=== PATIENT | female | born 1965 ===

== ENCOUNTER 2017-07-14 09:48 | Emergency (ER) | payer SELFPAY ==
[2017-07-14 10:02] VITALS: BP 145/90
--- NOTE | 2017-07-14 10:25 | UC ---
Throat Pain/Nasal Anthony HPI - History of Current Complaint Hx Obtained From: Patient ?: No Onset/Duration: Gradual Onset - over course of week, started with scratchy throat and stuffy nose Severity: Worse Since: - yesterday, now has pressure in face, nose won't stop dripping, PND, puffy eyes Pain Intensity: 8 Cough: Nonproductive Associated Signs & Symptoms: Positive: Fever <Elder Amaya - Last Filed: 07/14/17 10:29> <Brandi Walter - Last Filed: 07/14/17 12:59> - History of Current Complaint Chief Complaint: UCRespiratory Stated Complaint: SORE THROAT Time Seen by Provider: 07/14/17 10:18 - Allergies/Home Medications Allergies/Adverse Reactions: Allergies Allergy/AdvReac Type Severity Reaction Status Date / Time No Known Allergies Allergy Verified 07/14/17 10:02 Home Medications: Home Medications Doxylamine/Phenylep/Dm/Aspirin [[facility] Day-Night Tab Eff] 1 mis PO [History] PMH/Surg Hx/FS Hx/Imm Hx Previously Healthy: Yes - Surgical History Surgical History: Yes Surgery Procedure, Year, and Place: , lt shoulder - Family History Known Family History: Positive: None - Social History Occupation: Employed Full-time Lives: With Family Alcohol Use: Weekly Substance Use Type: None Smoking Status (MU): Never Smoked Tobacco <Elder Amaya - Last Filed: 07/14/17 10:29> Review of Systems Constitutional: Fever, Fatigue Skin: Negative ENT: Sore Throat, Nasal Discharge, Sinus Congestion, Sinus Pain/Tenderness Respiratory: Cough Cardiovascular: Negative Gastrointestinal: Negative Neurological: Negative Psychological: Negative Is Patient Immunocompromised?: No All Other Systems Reviewed And Are Negative: Yes <Elder Amaya - Last Filed: 07/14/17 10:29> Physical Exam Triage Information Reviewed: Yes Appearance: Well-Appearing, No Pain Distress, Well-Nourished Vital Signs: Initial Vital Signs Temp 99.8 F 07/14/17 09:57 Pulse 103 07/14/17 09:57 Resp 18 07/14/17 09:57 BP 145/90 07/14/17 09:57 Pulse Ox 98 07/14/17 09:57 Vital Signs Reviewed: Yes Eye Exam: Normal ENT: Positive: Pharyngeal erythema, Nasal congestion, Nasal drainage, TMs normal , Sinus tenderness Neck exam: Normal Neck: Positive: Supple, Nontender, No Lymphadenopathy Respiratory Exam: Normal Cardiovascular Exam: Normal Musculoskeletal Exam: Normal Neurological Exam: Normal Psychological Exam: Normal Skin Exam: Normal <Calista Amayamichele - Last Filed: 07/14/17 10:29> Vital Signs: Initial Vital Signs Temp 99.8 F 07/14/17 09:57 Pulse 103 07/14/17 09:57 Resp 18 07/14/17 09:57 BP 145/90 07/14/17 09:57 Pulse Ox 98 07/14/17 09:57 <Brandi Walter - Last Filed: 07/14/17 12:59> Throat Pain/Nasal Course/Dx - Differential Dx/Diagnosis Differential Diagnosis/HQI/PQRI: Influenza, Pharyngitis, Sinusitis, Tonsillitis , URI Provider Diagnoses: sinusitis <Elder Amaya - Last Filed: 07/14/17 10:29> Discharge - Sign-Out/Discharge Documenting (check all that apply): Discharge - Billing Disposition and Condition Condition: STABLE Disposition: HOME <Elder Amaya - Last Filed: 07/14/17 10:29> - Billing Disposition and Condition Condition: STABLE Disposition: HOME <Brandi Walter - Last Filed: 07/14/17 12:59> - Discharge Plan Condition: Stable Disposition: HOME Prescriptions: Ciprofloxacin HCl 500 mg PO BID #20 tablet Ciprofloxacin TAB* [Cipro 500 MG TAB*] 500 mg PO BID #20 tab Patient Education Materials: Sinusitis (ED) Referrals: No Primary Care Phys,NOPCP [Primary Care Provider] - Additional Instructions: drink plenty of fluids Start antibiotic and take as directed use sudafed decongestant to drain sinus pressure (especially before flying) Attestation Statement User Type: Provider - I was available for consult. This patient was seen by the advanced practice provider. The patient was not presented to, seen by, or examined by me.-Corbyj <Brandi Walter - Last Filed: 07/14/17 12:59>
== END 2017-07-14 10:50 | disposition home or self-care (01) ==
LOC: UCEAST 09:48
DX: J32.9 Chronic sinusitis, unspecified (principal)
CPT/HCPCS: 87651; 99202; G0463